=== PATIENT | female | born 2000 | race Caucasian/White ===

== ENCOUNTER 2019-09-15 15:27 | Emergency (ER) | payer MEDICAID ==
[~2019-09-15] VITALS: Ht 160 cm; Wt 64.0 kg
[2019-09-15] MEDS ORDERED: SODIUM CHLORIDE 0.9% 1,000 ML IV ONE (18:25)
[2019-09-15] MEDS ORDERED: ONDANSETRON HCL 4MG/2ML INJ IV STA (18:25)
[2019-09-15] MEDS ORDERED: MAGNESIUM/ALUMINUM HYDROXIDE/SIMETHICONE 30ML UDC PO ONE (18:30)
[2019-09-15] MEDS ORDERED: FAMOTIDINE 20MG/2ML VIAL IV ONE (18:30)
[2019-09-15 18:45] LABS: HEMATOCRIT. 36.1 % (36.0-48.0); HEMOGLOBIN. 12.3 g/dL (12.0-16.0); MEAN CORPUSCULAR HEMOGLOBIN 30.5 pg (28.0-32.0); MEAN CORPUSCULAR VOLUME 89.7 fL (81.0-99.0); PLATELET 283 x1000/uL (130-400); RED BLOOD CELL COUNT 4.03 mill/uL (4.2-5.4); RED CELL DISTRIBUTION WIDTH 13.8 % (11.6-14.6)
[2019-09-15 18:52] LABS: CHLORIDE 106 mEq/L (98-107)
[2019-09-15 19:08] LABS: PLATELET ESTIMATE NORMAL
[2019-09-15 19:18] LABS: B-HCG QUANTITATIVE 24736 mIU/mL (<3)
[2019-09-15 20:47] LABS: CLARITY URINE CLEAR (CLEAR); COLOR URINE YELLOW (YELLOW); KETONES URINE 3+ (NEGATIVE); LEUKOCYTE ESTERASE URINE 3+ (NEGATIVE); NITRITE URINE NEGATIVE (NEGATIVE); OCCULT BLOOD URINE NEGATIVE (NEGATIVE); PH URINE 7.5 (4.5-8.0); PROTEIN URINE NEGATIVE (NEGATIVE); SPECIFIC GRAVITY URINE 1.011 (1.005-1.030)
[2019-09-15] MEDS ORDERED: BUTORPHANOL TARTRATE 2 MG/ML VIAL IM ONE (21:00)
[2019-09-16 00:08] VITALS: BP 118/72
== END 2019-09-16 00:05 | disposition home or self-care (01) ==
LOC: ER 15:27
DX: O26.892 Other specified pregnancy related conditions, second trimester (principal); O20.0 Threatened abortion; R10.9 Unspecified abdominal pain; K80.80 Other cholelithiasis without obstruction; Z3A.19 19 weeks gestation of pregnancy
CPT/HCPCS: 36415; 76705; 76805; 76830; 80053; 81003; 83690; 84702; 85025; 86850; 86900; 86901; 96372; 96374; 96375; 99284; J0595; J2405; J3490; J7030

== ENCOUNTER 2019-10-08 00:08 | Observation (INO) | payer MEDICAID ==
[~2019-10-08] VITALS: Ht 160 cm; Wt 66.2 kg
[2019-10-08] MEDS ORDERED: PREN-55 PO (01:36)
== END 2019-10-08 02:30 | disposition home or self-care (01) ==
LOC: 8 EST LDRP 00:08
PROVIDERS: ADMIT Obstetrics & Gynecology; ATTEND Obstetrics & Gynecology
DX: O21.2 Late vomiting of pregnancy (principal); O26.892 Other specified pregnancy related conditions, second trimester; R10.13 Epigastric pain; M54.9 Dorsalgia, unspecified; Z3A.23 23 weeks gestation of pregnancy
CPT/HCPCS: 99281; G0378

== ENCOUNTER 2019-10-08 02:42 | Emergency (ER) | payer MEDICAID ==
[~2019-10-08] VITALS: Ht 160 cm; Wt 67.0 kg
[~2019-10-08 02:42] MED LIST: PREN-55 PO
[2019-10-08] MEDS ORDERED: VISCOUS LIDOCAINE 2% 15 ML UDC PO ONE (03:15)
[2019-10-08] MEDS ORDERED: ACETAMINOPHEN 325MG TABLET PO PRN (03:15)
[2019-10-08] MEDS ORDERED: MAGNESIUM/ALUMINUM HYDROXIDE/SIMETHICONE 30ML UDC PO ONE (03:15)
[2019-10-08 03:52] LABS: CLARITY URINE CLOUDY (CLEAR); COLOR URINE YELLOW (YELLOW); KETONES URINE NEGATIVE (NEGATIVE); LEUKOCYTE ESTERASE URINE TRACE (NEGATIVE); NITRITE URINE NEGATIVE (NEGATIVE); OCCULT BLOOD URINE NEGATIVE (NEGATIVE); PH URINE 7.5 (4.5-8.0); PROTEIN URINE NEGATIVE (NEGATIVE); SPECIFIC GRAVITY URINE 1.012 (1.005-1.030); UROBILINOGEN URINE 0.2 E.U./dL (0.2-1.0)
[2019-10-08] MEDS ORDERED: NITROFURANTOIN 100MG M/M CAPSULE PO NR (04:15)
[2019-10-08 04:20] LABS: *BARBITURATES SCREEN URINE NEGATIVE (NEGATIVE); *BENZODIAZEPINES SCREEN URINE NEGATIVE (NEGATIVE); *COCAINE SCREEN URINE NEGATIVE (NEGATIVE)
[2019-10-08 04:21] LABS: *AMPHETAMINES SCREEN URINE NEGATIVE (NEGATIVE); CANNABINOID URINE SCREEN NEGATIVE (NEGATIVE); METHADONE URINE SCREEN NEGATIVE (NEGATIVE); OPIATES URINE SCREEN NEGATIVE (NEGATIVE); PHENCYCLIDINE URINE SCREEN NEGATIVE (NEGATIVE)
[2019-10-08 04:52] LABS: BASOPHILS % 0.3 % (0.0-2.0); EOSINOPHILS % 0.3 % (0.0-5.0); HEMATOCRIT. 31.4 % (36.0-48.0); HEMOGLOBIN. 10.8 g/dL (12.0-16.0); LYMPHOCYTES % 8.6 % (20.0-50.0); MEAN CORPUSCULAR HEMOGLOBIN 30.8 pg (28.0-32.0); MEAN CORPUSCULAR VOLUME 89.3 fL (81.0-99.0); MONOCYTES % 4.3 % (2.0-8.0); NEUTROPHILS % 86.5 % (40.0-76.0); PLATELET 273 x1000/uL (130-400); RED BLOOD CELL COUNT 3.51 mill/uL (4.2-5.4); RED CELL DISTRIBUTION WIDTH 13.7 % (11.6-14.6)
[2019-10-08 04:54] LABS: CHLORIDE 106 mEq/L (98-107)
[2019-10-08] MEDS ORDERED: ONDANSETRON 4MG ODT PO ONE (05:15)
[2019-10-08 06:07] VITALS: BP 105/62
== END 2019-10-08 06:26 | disposition home or self-care (01) ==
LOC: ER 02:42
DX: N39.0 Urinary tract infection, site not specified (principal); R11.2 Nausea with vomiting, unspecified; K80.20 Calculus of gallbladder without cholecystitis without obstruction; R74.8 Abnormal levels of other serum enzymes
CPT/HCPCS: 36415; 76705; 80053; 80305; 81003; 85025; 99284; Q0162

== ENCOUNTER 2020-02-08 10:31 | Emergency (ER) | payer MEDICAID ==
[~2020-02-08] VITALS: Ht 157.5 cm; Wt 70.0 kg
[2020-02-08 11:17] LABS: BASOPHILS % 0.6 % (0.0-2.0); EOSINOPHILS % 3.4 % (0.0-5.0); HEMATOCRIT. 42.8 % (36.0-48.0); LYMPHOCYTES % 21.1 % (20.0-50.0); MEAN CORPUSCULAR HEMOGLOBIN 33.2 pg (28.0-32.0); MEAN CORPUSCULAR VOLUME 94.9 fL (81.0-99.0); MEAN PLATELET VOLUME 7.9 fl (7.4-10.4); MONOCYTES % 5.1 % (2.0-8.0); NEUTROPHILS % 69.8 % (40.0-76.0); PLATELET 236 x1000/uL (130-400); RED BLOOD CELL COUNT 4.51 mill/uL (4.2-5.4); RED CELL DISTRIBUTION WIDTH 13.9 % (11.6-14.6)
[2020-02-08 11:22] LABS: CHLORIDE 107 mEq/L (98-107)
[2020-02-08 11:24] LABS: PROTHROMBIN TIME 10.4 sec (9.6-11.0)
[2020-02-08 11:31] LABS: HCG SCREEN POSITIVE
[2020-02-08 12:42] LABS: CLARITY URINE CLEAR (CLEAR); COLOR URINE YELLOW (YELLOW); KETONES URINE NEGATIVE (NEGATIVE); LEUKOCYTE ESTERASE URINE 2+ (NEGATIVE); NITRITE URINE NEGATIVE (NEGATIVE); OCCULT BLOOD URINE 3+ (NEGATIVE); PROTEIN URINE TRACE (NEGATIVE); SPECIFIC GRAVITY URINE 1.008 (1.005-1.030); UROBILINOGEN URINE 0.2 E.U./dL (0.2-1.0)
[2020-02-08 13:24] VITALS: BP 107/68
== END 2020-02-08 13:26 | disposition home or self-care (01) ==
LOC: ER 10:31
DX: K80.20 Calculus of gallbladder without cholecystitis without obstruction (principal); Z79.899 Other long term (current) drug therapy
CPT/HCPCS: 36415; 76705; 80053; 81003; 84703; 85025; 99284

== ENCOUNTER 2020-02-17 09:28 | Emergency (ER) | payer MEDICAID ==
[~2020-02-17] VITALS: Ht 157.5 cm; Wt 58.0 kg
[2020-02-17] MEDS ORDERED: SODIUM CHLORIDE 0.9% 1,000 ML IV ONE (10:46)
[2020-02-17] MEDS ORDERED: MORPHINE SULFATE 4 MG/ML CPJ (NOT FOR IM USE) IV STA (10:46)
[2020-02-17] MEDS ORDERED: ONDANSETRON HCL 4MG/2ML INJ IV STA (10:46)
[2020-02-17] MEDS ORDERED: KETOROLAC 30MG/ML VIAL IV STA (10:46)
[2020-02-17] MEDS ORDERED: FAMOTIDINE 20MG/2ML VIAL IV STA (10:46)
[2020-02-17 11:05] LABS: BASOPHILS % 0.4 % (0.0-2.0); EOSINOPHILS % 0.8 % (0.0-5.0); HEMOGLOBIN. 16.6 g/dL (12.0-16.0); LYMPHOCYTES % 18.3 % (20.0-50.0); MEAN CORPUSCULAR HEMOGLOBIN 32.9 pg (28.0-32.0); MEAN PLATELET VOLUME 8.2 fl (7.4-10.4); NEUTROPHILS % 77.5 % (40.0-76.0); PLATELET 268 x1000/uL (130-400); RED BLOOD CELL COUNT 5.05 mill/uL (4.2-5.4); RED CELL DISTRIBUTION WIDTH 13.4 % (11.6-14.6)
[2020-02-17 11:12] LABS: INR 1.1; PROTHROMBIN TIME 11.1 sec (9.6-11.0)
[2020-02-17 11:14] LABS: CHLORIDE 107 mEq/L (98-107)
[2020-02-17] MEDS ORDERED: ONDANSETRON HCL 4MG/2ML INJ IV ONE (12:15)
[2020-02-17] MEDS ORDERED: LORAZEPAM 2MG/ML CPJ IV SCH (13:45)
[2020-02-17] MEDS ORDERED: IOHEXOL-350 100 ML BOTTLE ONE (15:11)
[2020-02-17] MEDS ORDERED: DIPHENHYDRAMINE 50MG/ML VIAL IV ONE (15:30)
[2020-02-17] MEDS ORDERED: METHYLPREDNISOLONE SOD SUCC 125 MG/2 ML VIAL IV ONE (15:30)
[2020-02-17] MEDS ORDERED: FAMOTIDINE 20MG/2ML VIAL IV ONE (15:30)
[2020-02-17 16:15] LABS: CLARITY URINE SL HAZY (CLEAR); COLOR URINE PALE YELLOW (YELLOW); PH URINE >=9.0 (4.5-8.0); PROTEIN URINE TRACE (NEGATIVE); SPECIFIC GRAVITY URINE 1.021 (1.005-1.030)
[2020-02-17 16:16] LABS: KETONES URINE 1+ (NEGATIVE); LEUKOCYTE ESTERASE URINE 2+ (NEGATIVE); NITRITE URINE NEGATIVE (NEGATIVE); OCCULT BLOOD URINE 3+ (NEGATIVE); UROBILINOGEN URINE 0.2 E.U./dL (0.2-1.0)
[2020-02-17 16:24] LABS: *AMPHETAMINES SCREEN URINE NEGATIVE (NEGATIVE); *BARBITURATES SCREEN URINE NEGATIVE (NEGATIVE); *BENZODIAZEPINES SCREEN URINE NEGATIVE (NEGATIVE); *COCAINE SCREEN URINE NEGATIVE (NEGATIVE)
[2020-02-17 16:25] LABS: CANNABINOID URINE SCREEN NEGATIVE (NEGATIVE); METHADONE URINE SCREEN NEGATIVE (NEGATIVE); PHENCYCLIDINE URINE SCREEN NEGATIVE (NEGATIVE)
[2020-02-17 16:42] LABS: OPIATES URINE SCREEN PRESUMTIVE POSITIVE (NEGATIVE)
[2020-02-17 16:59] VITALS: BP 152/88
== END 2020-02-17 17:10 | disposition short-term general hospital (02) ==
LOC: ER 09:28
DX: K80.20 Calculus of gallbladder without cholecystitis without obstruction (principal)
CPT/HCPCS: 36415; 74177; 76705; 80053; 80305; 81003; 83690; 85025; 85610; 96374; 96375; 96376; 99285; J1200; J1885; J2270; J2405; J2930; J3490; J7030; Q9967

== ENCOUNTER 2020-03-17 07:23 | Inpatient (IN) | payer MEDICAID ==
[~2020-03-17] VITALS: Ht 165.1 cm; Wt 64.9 kg
[2020-03-17] MEDS ORDERED: ONDANSETRON HCL 4MG/2ML INJ IV ONE ×3 (08:45→12:15)
[2020-03-17] MEDS ORDERED: MORPHINE SULFATE 2 MG/ML CPJ (NOT FOR IM USE) IV ONE (08:45)
[2020-03-17 09:28] LABS: BASOPHILS % 0.4 % (0.0-2.0); CLARITY URINE CLEAR (CLEAR); COLOR URINE YELLOW (YELLOW); EOSINOPHILS % 0.9 % (0.0-5.0); HEMATOCRIT. 40.9 % (36.0-48.0); HEMOGLOBIN. 13.9 g/dL (12.0-16.0); KETONES URINE NEGATIVE (NEGATIVE); LEUKOCYTE ESTERASE URINE 1+ (NEGATIVE); LYMPHOCYTES % 21.7 % (20.0-50.0); MEAN CORPUSCULAR HEMOGLOBIN 31.8 pg (28.0-32.0); MEAN CORPUSCULAR VOLUME 93.7 fL (81.0-99.0); MEAN PLATELET VOLUME 8.9 fl (7.4-10.4); MONOCYTES % 5.7 % (2.0-8.0); NEUTROPHILS % 71.3 % (40.0-76.0); NITRITE URINE NEGATIVE (NEGATIVE); OCCULT BLOOD URINE NEGATIVE (NEGATIVE); PLATELET 195 x1000/uL (130-400); PROTEIN URINE NEGATIVE (NEGATIVE); RED BLOOD CELL COUNT 4.36 mill/uL (4.2-5.4); RED CELL DISTRIBUTION WIDTH 12.8 % (11.6-14.6); SPECIFIC GRAVITY URINE 1.012 (1.005-1.030); UROBILINOGEN URINE 0.2 E.U./dL (0.2-1.0)
[2020-03-17 09:32] LABS: CHLORIDE 109 mEq/L (98-107)
[2020-03-17 09:35] LABS: PROTHROMBIN TIME 10.9 sec (9.6-11.0)
[2020-03-17] MEDS ORDERED: MORPHINE SULFATE 4 MG/ML CPJ (NOT FOR IM USE) IV ONE ×2 (10:30→12:15)
[2020-03-17] MEDS ORDERED: SODIUM CHLORIDE 0.9% 1,000 ML IV ONE (12:30)
[2020-03-17] MEDS ORDERED: ACETAMINOPHEN 325MG TABLET PO PRN (12:45)
[2020-03-17] MEDS ORDERED: ONDANSETRON HCL 4MG/2ML INJ IV PRN (12:45)
[2020-03-17] MEDS ORDERED: POTASSIUM CHLORIDE INJ 40 MEQ in DEXT 5% WATER 250 ML IV NR (14:00)
[2020-03-17] MEDS ORDERED: CEFTRIAXONE 1 G PREMIX 50 ML IV ONE (15:45)
[2020-03-17] MEDS: DEXT 5%/0.45% NACL 1000ML 1,000 ML IV SCH (17:57)
[2020-03-17] MEDS ORDERED: PIPERACILLIN/TAZOBACTAM 3.375 G in DEXT 5% WATER 100 ML IV SCH (18:00)
[2020-03-17] MEDS: MORPHINE SULFATE 2 MG/ML CPJ (NOT FOR IM USE) IV PRN (21:01)
[2020-03-17 21:18] VITALS: BP 124/77
[2020-03-18] VITALS: BP 124/77
[2020-03-18] MEDS: PIPERACILLIN/TAZOBACTAM 3.375 G in DEXT 5% WATER 100 ML IV SCH ×4 (00:19→18:02)
[2020-03-18] MEDS: MORPHINE SULFATE 2 MG/ML CPJ (NOT FOR IM USE) IV PRN ×2 (01:01→11:17)
[2020-03-18 04:00] VITALS: BP 99/56
[2020-03-18] MEDS: DEXT 5%/0.45% NACL 1000ML 1,000 ML IV SCH ×2 (04:29→12:58)
[2020-03-18 06:12] LABS: BASOPHILS % 0.9 % (0.0-2.0); EOSINOPHILS % 1.3 % (0.0-5.0); HEMATOCRIT. 37.4 % (36.0-48.0); HEMOGLOBIN. 12.7 g/dL (12.0-16.0); LYMPHOCYTES % 32.2 % (20.0-50.0); MEAN CORPUSCULAR HEMOGLOBIN 31.8 pg (28.0-32.0); MEAN CORPUSCULAR VOLUME 93.5 fL (81.0-99.0); MEAN PLATELET VOLUME 9.2 fl (7.4-10.4); MONOCYTES % 9.3 % (2.0-8.0); NEUTROPHILS % 56.3 % (40.0-76.0); PLATELET 178 x1000/uL (130-400); RED CELL DISTRIBUTION WIDTH 12.9 % (11.6-14.6)
[2020-03-18 06:17] LABS: CHLORIDE 112 mEq/L (98-107)
[2020-03-18 08:00] VITALS: BP 98/65
[2020-03-18] MEDS ORDERED: PANTOPRAZOLE SODIUM 40 MG/VIAL IV SCH (09:00)
[2020-03-18] MEDS ORDERED: POTASSIUM CHLORIDE 20MEQ TABLET SR PO NR (11:00)
[2020-03-18 12:00] VITALS: BP 96/53
[2020-03-18 16:00] VITALS: BP 106/75
[2020-03-18 17:53] VITALS: BP 106/75
== END 2020-03-18 18:31 | disposition short-term general hospital (02) | DRG 425 ==
LOC: ER 07:23 → 6EST 12:29 → ENRESERV 20:28
PROVIDERS: ADMIT Internal Medicine; ATTEND Internal Medicine
DX: E87.6 Hypokalemia (principal); K80.10 Calculus of gallbladder with chronic cholecystitis without obstruction; E87.8 Other disorders of electrolyte and fluid balance, not elsewhere classified
CPT/HCPCS: 36415; 76705; 80053; 81003; 85025; 93005; 96374; 99285; C9113; J0696; J2270; J2405; J2543; J3480; J7060

== ENCOUNTER 2020-07-19 16:58 | Emergency (ER) | payer MEDICAID ==
[~2020-07-19] VITALS: Ht 160 cm; Wt 57.0 kg
[2020-07-19 20:33] LABS: CLARITY URINE CLEAR (CLEAR); COLOR URINE YELLOW (YELLOW); KETONES URINE NEGATIVE (NEGATIVE); LEUKOCYTE ESTERASE URINE NEGATIVE (NEGATIVE); NITRITE URINE NEGATIVE (NEGATIVE); OCCULT BLOOD URINE NEGATIVE (NEGATIVE); PROTEIN URINE NEGATIVE (NEGATIVE); SPECIFIC GRAVITY URINE 1.021 (1.005-1.030); UROBILINOGEN URINE 0.2 E.U./dL (0.2-1.0)
[2020-07-19 20:50] LABS: CHLORIDE 107 mEq/L (98-107)
[2020-07-19 20:51] LABS: BASOPHILS % 1.1 % (0.0-2.0); EOSINOPHILS % 4.6 % (0.0-5.0); HEMATOCRIT. 42.1 % (36.0-48.0); HEMOGLOBIN. 14.2 g/dL (12.0-16.0); LYMPHOCYTES % 37.5 % (20.0-50.0); MEAN CORPUSCULAR HEMOGLOBIN 30.1 pg (28.0-32.0); MEAN CORPUSCULAR VOLUME 89.4 fL (81.0-99.0); MEAN PLATELET VOLUME 8.8 fl (7.4-10.4); MONOCYTES % 5.5 % (2.0-8.0); NEUTROPHILS % 51.3 % (40.0-76.0); PLATELET 226 x1000/uL (130-400); RED BLOOD CELL COUNT 4.71 mill/uL (4.2-5.4)
[2020-07-19 21:03] LABS: HCG SCREEN NEGATIVE
[2020-07-19 21:59] VITALS: BP 131/72
== END 2020-07-19 22:01 | disposition home or self-care (01) ==
LOC: ER 17:32
DX: R10.30 Lower abdominal pain, unspecified (principal); Z90.49 Acquired absence of other specified parts of digestive tract; Z91.041 Radiographic dye allergy status
CPT/HCPCS: 36415; 80053; 81003; 84703; 85025; 93005; 99284